=== PATIENT | male | born 1970 ===

== ENCOUNTER 2021-05-17 14:51 | Emergency (ER) | payer SELFPAY ==
[2021-05-17 15:25] VITALS: BP 167/104
--- NOTE | 2021-05-17 15:31 | Emergency Department Report ---
ED General Adult HPI - General Chief complaint: Laceration/Recheck/Suture Stated complaint: ARM WOUND Time Seen by Provider: 05/17/21 15:26 Source: patient Mode of arrival: Ambulatory Limitations: No Limitations - History of Present Illness Initial comments: 51-year-old male patient presents with complaints of left lower arm laceration today. Patient states he was hammering wood and believes a piece of the wood flew off and cut his arm. His last tetanus vaccination was 8 months ago per patient. He states pain is minimal and bleeding has subsided. No numbness/tingling or weakness or difficulty moving the arm per patient - Related Data Allergies Allergy/AdvReac Type Severity Reaction Status Date / Time No Known Allergies Allergy Verified 05/17/21 15:22 ED Review of Systems ROS: Stated complaint: ARM WOUND Other details as noted in HPI Musculoskeletal: denies: joint swelling, arthralgia Skin: as per HPI. denies: change in color Neurological: denies: numbness, paresthesias ED Physical Exam - General Limitations: No Limitations General appearance: alert, in no apparent distress - Head Head exam: Present: atraumatic, normocephalic - Eye Eye exam: Present: normal appearance - Respiratory Respiratory exam: Absent: respiratory distress - Cardiovascular Cardiovascular Exam: Present: regular rate - Neurological Exam Neurological exam: Present: alert, oriented X3 - Psychiatric Psychiatric exam: Present: normal affect, normal mood - Skin Skin exam: Present: warm, dry, intact, normal color, other (Small <1 cm laceration noted to the distal left forearm with mild surrounding swelling; no erythema or obvious foreign bodies noted; patient has normal radial and ulnar pulses and normal range of motion of the elbow wound arm). Absent: rash ED Course Vital Signs 05/17/21 15:23 Temperature 98.2 F Pulse Rate 97 H Respiratory 16 Rate Blood Pressure 167/104 [Left] O2 Sat by Pulse 97 Oximetry ED Medical Decision Making - Radiology Data Radiology results: report reviewed FINDINGS: BONES / JOINT(S): No acute fracture or subluxation. No significant arthritis. SOFT TISSUES: Within the medial soft tissues of the mid left arm there is a 5 mm radiopaque density/foreign body. ADDITIONAL FINDINGS: None. IMPRESSION: 5 mm foreign body in the medial left arm soft tissues. No underlying skeletal abnormality. - Medical Decision Making 51-year-old male patient presents with complaints of left lower arm l aceration today. Patient states he was hammering wood and believes a piece of the wood flew off and cut his arm. His last tetanus vaccination was 8 months ago per patient. He states pain is minimal and bleeding has subsided. No numbness/tingling or weakness or difficulty moving the arm per patient Patient eloped prior to x-ray results which show foreign body. Patient was contacted via home phone number on file and advised to return to ED to have foreign body removed. Patient states he does not wish to return to the ED. Discussed possibility of infection and risk of , patient verbalizes understanding Critical care attestation.: If time is entered above; I have spent that time in minutes in the direct care of this critically ill patient, excluding procedure time. ED Disposition Clinical Impression: Laceration of left upper arm with foreign body Disposition: 07 LEFT AWOL/ELOPED Is pt being admited?: No Condition: Stable
--- NOTE | 2021-05-17 15:56 | XRay Report ---
LEFT HUMERUS AP AND LATERAL VIEWS INDICATION / CLINICAL INFORMATION: distal laceration, r/o foreign body COMPARISON: None available. FINDINGS: BONES / JOINT(S): No acute fracture or subluxation. No significant arthritis. SOFT TISSUES: Within the medial soft tissues of the mid left arm there is a 5 mm radiopaque density/f oreign body. ADDITIONAL FINDINGS: None. IMPRESSION: 5 mm foreign body in the medial left arm soft tissues. No underlying skeletal abnormality. Signer Name: Adelfo Henry MD Signed: 05/17/2021 3:52 PM Workstation Name: [id number]
== END 2021-05-17 16:00 | disposition left against medical advice (07) ==
LOC: ED 14:51
DX: S41.121A Laceration with foreign body of right upper arm, initial encounter (principal); X58.XXXA Exposure to other specified factors, initial encounter; Y93.89 Activity, other specified; Y92.89 Other specified places as the place of occurrence of the external cause; Y99.8 Other external cause status
CPT/HCPCS: 99282

== ENCOUNTER 2021-06-15 11:17 | Emergency (ER) | payer SELFPAY ==
[2021-06-15] MEDS ORDERED: ALBUTEROL 2.5 MG/3 ML NEBU IH ONE (11:31)
[2021-06-15] MEDS ORDERED: IPRATROPIUM 0.02% NEBU 2.5 ML IH ONE (11:31)
[2021-06-15] MEDS ORDERED: dexAMETHasone 4 MG/ML VIAL IM ONE (11:32)
[2021-06-15 12:05] VITALS: BP 98/59
--- NOTE | 2021-06-15 12:11 | XRay Report ---
CHEST 2 VIEWS INDICATION / CLINICAL INFORMATION: Dyspnea. COMPARISON: None available. FINDINGS: SUPPORT DEVICES: None. HEART / MEDIASTINUM: No significant abnormality. LUNGS / PLEURA: No significant pulmonary or pleural abnormality. No pneumothorax. ADDITIONAL FINDINGS: No significant additional findings. IMPRESSION: 1. No acute findings. Signer Name: Gerson Siegel MD Signed: 06/15/2021 12:06 PM Workstation Name: [id number]
--- NOTE | 2021-06-15 13:06 | Emergency Department Report ---
ED Shortness of Breath HPI - General Chief Complaint: Dyspnea/Respdistress Stated Complaint: SOB Time Seen by Provider: 06/15/21 11:31 Source: patient Mode of arrival: Ambulatory Limitations: No Limitations - History of Present Illness MD Complaint: shortness of breath -: Gradual, hour(s) Severity: moderate Pain Scale: 0 Associated Symptoms: denies other symptoms Treatments Prior to Arrival: none - Related Data Home Oxygen Therapy: No Allergies Allergy/AdvReac Type Severity Reaction Status Date / Time No Known Allergies Allergy Verified 05/17/21 15:22 ED Review of Systems ROS: Stated complaint: SOB Other details as noted in HPI Constitutional: denies: chills, fever Eyes: denies: eye pain, eye discharge, vision change ENT: denies: ear pain, throat pain Respiratory: denies: cough, shortness of breath, wheezing Cardiovascular: denies: chest pain, palpitations Endocrine: no symptoms reported Gastrointestinal: denies: abdominal pain, nausea, diarrhea Genitourinary: denies: urgency, dysuria Musculoskeletal: denies: back pain, joint swelling, arthralgia Skin: denies: rash, lesions Neurological: denies: headache, weakness, paresthesias Psychiatric: denies: anxiety, depression Hematological/Lymphatic: denies: easy bleeding, easy bruising ED Past Medical Hx - Past Medical History Previous Medical History?: No Hx Hypertension: No Hx CVA: No ED Physical Exam - General Limitations: No Limitations General appearance: alert, in no apparent distress - Head Head exam: Present: atraumatic, normocephalic - Eye Eye exam: Present: normal appearance - ENT ENT exam: Present: mucous membranes moist - Neck Neck exam: Present: normal inspection - Respiratory Respiratory exam: Present: wheezes, rhonchi. Absent: respiratory distress - Cardiovascular Cardiovascular Exam: Present: regular rate, normal rhythm. Absent: systolic murmur, diastolic murmur, rubs, gallop - GI/Abdominal GI/Abdominal exam: Present: soft, normal bowel sounds - Rectal Rectal exam: Present: deferred - Extremities Exam Extremities exam: Present: normal inspection - Back Exam Back exam: Present: normal inspection - Neurological Exam Neurological exam: Present: alert, oriented X3 - Psychiatric Psychiatric exam: Present: normal affect, normal mood - Skin Skin exam: Present: warm, dry, intact, normal color. Absent: rash ED Course Vital Signs 06/15/21 12:03 Temperature 97.4 F L Pulse Rate 72 Respiratory 18 Rate Blood Pressure 98/59 [Right] O2 Sat by Pulse 98 Oximetry ED Medical Decision Making - Radiology Data Radiology results: report reviewed, image reviewed - Medical Decision Making rt given pt disppeared before treatment continues Critical care attestation.: If time is entered above; I have spent that time in minutes in the direct care of this critically ill patient, excluding procedure time. ED Disposition Clinical Impression: SOB (shortness of breath) Disposition: 07 LEFT AWOL/ELOPED Is pt being admited?: No Does the pt Need Aspirin: No Condition: Stable Referrals: PRIMARY CARE, [Primary Care Provider] - 3-5 Days
--- NOTE | 2021-06-17 14:10 | Electrocardiograph Report ---
[facility] Test Date: 2021-06-15 Test Time: 12:12:17 Pat Name: SHIVAM DOMINGUEZ Department: Room: Gender: M Imaging Analyst: ELLY : 1970 Requested By: ROSY ROOT Order Number: [id number] Reading MD: Deshawn De Guzman Measurements Intervals [place] Rate: 67 P: 76 MS: 139 QRS: 68 QRSD: 97 T: 56 QT: 419 QTc: 442 Interpretive Statements Sinus rhythm ST elevation, consider early repolarization or acute injury No previous ECG available for comparison Electronically Signed On 06-17-2021 14:10:19 EDT by Deshawn De Guzman
== END 2021-06-15 12:27 | disposition left against medical advice (07) ==
LOC: ED 11:17
DX: R06.02 Shortness of breath (principal)
CPT/HCPCS: 71046; 93005; 94640; 96372; 99283; J1100